=== PATIENT | male | born 1945 | race Caucasian/White ===

== ENCOUNTER → 2017-02-18 | Outpatient (CLI) | payer OTHER ==
[~2017-02-18] MED LIST: AVAPRO150 MG PO; BENICAR20 MG PO; HYDROCODONE/APA1 T16 PO; KEFLEX500 MG PO; LOC PO; LORTAB; PERCOCET 5-3251 TAB PO; PERCOCET 7.5/321 TAB PO; ULORIC40 MG PO; ZYLOPRIM PO
--- NOTE | ~2017-02-18 | CT2 ---
[facility] A Service of [facility] & [facility] [place] [place] RADIOLOGY TEXT RESULTS PATIENT: [facility] UN[facility] #: [id number] AGE: [address]: Eliana Barker MD SEX: M ORDER DR: [id number] [facility] [address] [place], [place] [address] [id number] O MR#: [id number] Acc #: [id number] NAME: ABBY HARDING : 1945 SEX: M STUDY DATE/TIME: 02/18/2017 10:19 UNIT: [facility] ROOM: STUDY DESCRIPTION: CT Abd and Pelv W Cont Attending Physician: Eliana Barker M.D. Referring Physician: Eliana Barker M.D. Ordering Physician: Eliana Barker M.D. Primary Care Physician: Jorden Healy M.D. MEDICAL IMAGING REPORT This report is preliminary unless electronic signature is present EXAM CT abdomen and pelvis 02/18/2017 INDICATIONS Colon cancer. Observation for metastatic disease. Sigmoid colon/rectal junction tumor. Status post surgical resection. TECHNIQUE CT of the abdomen and pelvis with p.o. and IV contrast (100 mL Isovue-[id number] IV contrast). Coronal and sagittal reconstructions were obtained. This CT exam was performed with one or more of the following radiation dose reduction techniques: automatic exposure control, adjustment of mA and/or kV according to patient size, and iterative reconstruction. COMPARISON CT abdomen and pelvis dated 02/18/2016. FINDINGS CT ABDOMEN: There is a 0.7 cm calculus in the superior pole of the kidney. The liver, pancreas, spleen, and adrenal glands are unchanged. There is a small lipoma in the external oblique muscle overlying the left inferior rib cage. The bowel is not dilated. Patient has undergone partial resection of the sigmoid colon with subsequent reanastomosis. No recurrent or residual mass. The appendix is normal. CT PELVIS: No pelvic mass or free pelvic fluid. Bladder is unremarkable. No enlarged pelvic or inguinal lymph nodes. Patient has had a repair of an anterior abdominal wall hernia. No recurrent hernia is identified. No acute osseous abnormalities. IMPRESSION [facility]. [facility] A Service of [facility] & [facility] RADIOLOGY TEXT RESULTS PATIENT: ABBY HARDING LOCATION: [facility] : 45 UNIT #: [id number] AGE: [address]: Eliana Barker MD SEX: M ORDER DR: No evidence of recurrent or metastatic disease in a patient status post partial colectomy with subsequent reanastomosis. Dictated by... Juan Alberto Meza M.D. THIS IS AN ELECTRONICALLY VERIFIED REPORT Juan Alberto Meza M.D. at 02/18/2017 3:51 PM PEACE/ricky TD: 02/18/2017 15:25 JOB #: [id number] MEDICAL IMAGING REPORT Page 1 of 1 COPY
[2017-02-18 11:56] LABS: POC - CREATININE 0.84 mg/dL (0.64-1.27); POC - GFR >60.0 mL/min (>60)
== END | disposition home or self-care (01) ==
LOC: CCAT 09:21
PROVIDERS: Internal Medicine Hematology
DX: Z08 Encounter for follow-up examination after completed treatment for malignant neoplasm (principal); Z85.038 Personal history of other malignant neoplasm of large intestine; Z90.49 Acquired absence of other specified parts of digestive tract
CPT/HCPCS: 74177; 82565; Q9967